=== PATIENT | female | born 1955 | race Caucasian/White ===

== ENCOUNTER 2016-09-29 12:40 | Inpatient (IN) ==
--- NOTE | 2016-09-29 13:26 | Emergency Department Note ---
Disposition Clinical Impression: Right patella fracture Qualifiers: Encounter type: subsequent encounter Fracture type: closed Fracture morphology : comminuted Fracture alignment: displaced Fracture healing: with routine healing Qualified Code(s): S82.041D - Displaced comminuted fracture of right patella, subsequent encounter for closed fracture with routine healing Humeral head fracture Qualifiers: Encounter type: subsequent encounter Laterality: right Fracture healing: with routine healing Qualified Code(s): S42.291D - Other displaced fracture of upper end of right humerus, subsequent encounter for fracture with routine healing Disposition: Admitted As Inpatient Condition: Good Time of Disposition: 14:43 Trauma HPI - General Chief Complaint: ED Extremity Injury, Upper Stated Complaint: right sided pain Time Seen by Provider: 09/29/16 13:08 Source: patient, EMS Mode of arrival: EMS Limitations: no limitations Nursing Notes Reviewed: Yes Vital Signs Reviewed: Yes - History of Present Illness HPI Narrative: 61-year-old female who apparently fell yesterday injuring her right shoulder and right knee. The patient was seen in an outside facility had x-rays was told that she had a shoulder dislocation that was reduced and she has a humeral neck fracture and a fracture of her right knee. Patient states she lives by herself cannot do anything for herself. She would like a social service consult also and a second opinion orthopedics. Pt Subjective Complaint: fall Onset (ago): day(s) (1) Loss of Consciousness: no Location - Extremities: Right: shoulder, knee Pain Severity: moderate - Related Data Home Medications Medication Instructions Recorded Confirmed Aspirin 81 mg PO DAILY 09/29/16 09/29/16 Diltiazem HCl [Diltiazem ER] 120 mg PO DAILY 09/29/16 09/29/16 Gabapentin [Neurontin] 400 mg PO TID 09/29/16 09/29/16 GlyBURIDE 5 mg PO BIDWM 09/29/16 09/29/16 Hydrochlorothiazide 25 mg PO DAILY 09/29/16 09/29/16 Losartan/Hydrochlorothiazide 1 tab PO DAILY 09/29/16 09/29/16 [Hyzaar 100-25 Tablet] Multivitamin [Multi-Day Vitamins] 1 tab PO DAILY 09/29/16 09/29/16 Naproxen [Naprosyn] 500 mg PO BID PRN 09/29/16 09/29/16 Pravastatin Sodium [Pravachol] 40 mg PO DAILY 09/29/16 09/29/16 Tolterodine LA (24 HR) [Detrol LA] 4 mg PO DAILY 09/29/16 09/29/16 Valacyclovir HCl [Valtrex] 1,000 mg PO Q12H PRN 09/29/16 09/29/16 Allergies Allergy/AdvReac Type Severity Reaction Status Date / Time iodine Allergy Hives Verified 09/29/16 12:51 All systems ED: reviewed and negative except as stated. Constitutional: Denies: fever, chills, weakness, weight change Eyes: Denies: eye pain, eye discharge, vision change ENT ED: Denies: ear pain, throat pain, dental pain, hearing loss, epistaxis, congestion, dysphagia Cardiovascular: Denies: chest pain, palpitations, dyspnea on exertion, edema, syncope Respiratory: Denies: cough, dyspnea, wheezes, hemoptysis, stridor Gastrointestinal: Denies: abdominal pain, nausea, vomiting, diarrhea, constipation, hematemesis, melena, hematochezia Genitourinary: Denies: dysuria, frequency, hematuria, discharge Musculoskeletal: Reports: arthralgia (Right knee and right shoulder pain status post fall diagnosed with fracture outside hospital). Denies: back pain, neck pain, myalgia Integumentary: Denies: rash, abrasion, lesions Neurological: Denies: headache, weakness, numbness, paresthesias, confusion, abnormal gait, vertigo Psychiatric: Denies: anxiety, depression, suicidal thoughts, homicidal thoughts , auditory hallucinations, visual hallucinations Endocrine: Denies: fatigue Hematological/Lymphatic: Denies: easy bleeding, easy bruising Allergic/Immunologic: Denies: facial swelling, urticaria Past Medical History - Past Medical History Medical history: Reports: diabetes, hyperlipidemia, hypertension - Social History Smoking Status: Never smoker Alcohol use: Reports: none Drug use: Reports: none Physical Exam - General General appearance: alert, in no apparent distress - Head Head exam: atraumatic, normocephalic, normal inspection - Eye Eye exam: Present: normal appearance, PERRL, EOMI - ENT ENT exam: normal exam, normal oropharynx, mucous membranes moist - Neck Neck exam: Present: normal inspection, full ROM, trachea midline - Chest Chest inspection: Present: normal inspection, symmetric chest wall rise - Respiratory Respiratory exam: Present: normal lung sounds bilaterally - Cardiovascular Cardiovascular exam: Present: regular rate, normal rhythm, normal heart sounds - Abdominal Exam Abdominal exam: Present: soft, Non-Tender. Absent: tenderness, distention, guarding, rebound, rigidity - Expanded Upper Extremity Exam Shoulder exam: Present: other (Right shoulder in a mobilizer a lot of pain in the shoulder region.) - Expanded Lower Extremity Exam Knee exam: Present: other (Right knee and immobilizer with significant pain.) Neurovascular/Tendon exam: Absent: motor deficit, sensory deficit, tendon deficit Gait: not tested/not observed - Back Exam Back exam: Present: normal inspection - Neurological Exam Neurological exam: Present: alert, oriented X3, other ([place] Coma Scale is 15) - Psychiatric Psychiatric exam: Present: normal affect, normal mood - Skin Skin exam: Present: warm, dry, intact, normal color Course - Consultations Consultation #1: I discussed the case with Dr. Callaway, he would like a CT of the shoulder and knee before the patient's admitted. Time: 14:41 Consultation #2: Discussed with Dr. Lindquist, admits Time: 14:42 Vital Signs Temperature 98.8 F 09/29/16 12:45 Pulse Rate 107 09/29/16 12:45 Respiratory Rate 16 09/29/16 12:45 Blood Pressure 133/82 09/29/16 12:45 O2 Sat by Pulse Oximetry 96 09/29/16 12:45 Temperature 98.8 F 09/29/16 12:45 Pulse Rate 96 09/29/16 16:15 Respiratory Rate 16 09/29/16 16:52 Blood Pressure 161/85 09/29/16 16:52 O2 Sat by Pulse Oximetry 93 09/29/16 16:15 Oxygen Delivery Oxygen Delivery Room Air Trauma - Radiology Data Radiology results reviewed: Yes I reviewed the patient's radiology results. Knee X-Ray 09/29/16 13:11 IMPRESSION: Comminuted and displaced fracture of the patella. D/ / 09/29/2016 14:05:03 Howard Rose MD / sadie Interpreting Provider: Howard Rose MD Shoulder X-Ray 09/29/16 13:11 IMPRESSION: Comminuted fracture of the peripheral superior-posterior humeral head. D/ / Max Murphy MD / Max Murphy MD Interpreting Provider: Max Murphy MD
[2016-09-29] MEDS ORDERED: *HR* HYDROmorphone (PF) 1 MG/ML SYRINGE IVP ONE (13:35)
[2016-09-29] MEDS ORDERED: Ondansetron 4 MG/2 ML VIAL IVP ONE ×2 (13:35→15:51)
[2016-09-29] MEDS ORDERED: Ondansetron 4 MG/2 ML VIAL ONE (15:52)
--- NOTE | 2016-09-29 16:47 | Internal Med History&Physical ---
<Vinh Mo - Last Filed: 09/29/16 16:45> Date of Encounter: 09/29/16 Time of Encounter: 16:46 Assessment and Plan (1) Fall Current visit: Yes Status: Acute 61-year-old female who was previously independent and walking without assistive devices suffered a mechanical fall after tripping over a wire at work and landing on her right knee and right shoulder. She lives at home independently. 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 Qualifiers: Qualified Code(s): W19.XXXA - Unspecified fall, initial encounter (2) Right patella fracture Current visit: Yes Status: Acute Right patellar fracture secondary to mechanical fall. Appreciated on x-ray of the right knee and CT of the right knee. Orthopedic surgery consultation placed by emergency department. Will likely need surgical intervention. Plan: - Nothing by mouth, prior to surgery - Low risk patient for a low risk procedure. - Physical therapy/occupational therapy consultation - Fall precautions - Needs CBC and BMP prior to surgery. Qualifiers: Encounter type: subsequent encounter Fracture type: closed Fracture morphology: comminuted Fracture alignment: displaced Fracture healing: with routine healing Qualified Code(s): S82.041D - Displaced comminuted fracture of right patella, subsequent encounter for closed fracture with routine healing (3) Humeral head fracture Current visit: Yes Status: Acute Right superior posterior humeral head fracture. Appreciated on shoulder x-ray and shoulder CT. Orthopedic consultation was placed by emergency department. Patient to be evaluated by orthopedist. Plan: - Continue splint. - Awaiting further recommendations per orthopedist. Qualifiers: Encounter type: subsequent encounter Laterality: right Fracture healing: with routine healing Qualified Code(s): S42.291D - Other displaced fracture of upper end of right humerus, subsequent encounter for fracture with routine healing (4) Hypertension Current visit: Yes Status: Acute Known history of hypertension current blood pressure stable. Plan: - We will hold blood pressure medications except for diltiazem prior to procedure. -Continue monitoring blood pressures. - Hydralazine 10 mg every 6 when necessary for blood pressures greater than 160 Qualifiers: Qualified Code(s): I10 - Essential (primary) hypertension (5) Hyperlipidemia Current visit: Yes Status: Acute Continue pravastatin. - Hold aspirin prior to procedure. Qualifiers: Qualified Code(s): E78.5 - Hyperlipidemia, unspecified (6) Diabetes Current visit: Yes Status: Acute Known history of type 2 diabetes. No labs drawn yet. Home medication thus far as his glyburide. Plan: - Low-dose sliding scale - ACHS glucose checks Qualifiers: Qualified Code(s): E11.9 - Type 2 diabetes mellitus without complications (7) DVT prophylaxis Current visit: Yes Status: Acute SQ heparin Q12hrs. Internal Medicine - H&P: HPI Chief complaint: fall Admitted From: Emergency Dept Plans for Post Hospital Care: [facility] History of present illness: Ms. Dacosta is a 61 year old female with known history of diabetes type 2, hypertension, hyperlipidemia presents to the emergency department status post traumatic fall at work. 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 She had immediate pain in the right knee and right shoulder with difficulty moving her right knee or right shoulder due to extreme pain. Relieving factors were immobility and bilateral when she arrived to emergency room. Exacerbating factors were movement. She denies taking anything prior to coming to the emergency department. She only noticed swelling in her right knee immediately after the fall. She denies any loss of sensation or numbness in her upper/lower extremities. She denies hitting her head, injuring her neck , loss of vision or change in vision, chest pain, palpitations, abdominal pains , nausea vomiting diarrhea constipation or shortness of breath. She is currently in stable condition rates her pain at 3 out of 10. Initial pain rating was 10 out of 10. She denies any current pain or change in symptoms. She denies any recent falls or frequent falls at home. She lives independently and cares for herself. She last fell several months ago when slipping on the ice. She denies the use of any canes or walkers or assist devices. Past Med Surg Social Fam HX - Past Medical History Medical history: diabetes, hyperlipidemia, hypertension - Past Surgical History Surgical History: cholecystectomy - Social History Smoking Status: Never smoker Alcohol use: none Drug use: none Internal Medicine - H&P: Meds Aspirin 81 mg PO DAILY 09/29/16 [History] Diltiazem HCl [Diltiazem ER] 120 mg PO DAILY 09/29/16 [History] Gabapentin [Neurontin] 400 mg PO TID 09/29/16 [History] GlyBURIDE 5 mg PO BIDWM 09/29/16 [History] Hydrochlorothiazide 25 mg PO DAILY 09/29/16 [History] Losartan/Hydrochlorothiazide [Hyzaar 100-25 Tablet] 1 tab PO DAILY 09/29/16 [ History] Multivitamin [Multi-Day Vitamins] 1 tab PO DAILY 09/29/16 [History] Naproxen [Naprosyn] 500 mg PO BID PRN 09/29/16 [History] Pravastatin Sodium [Pravachol] 40 mg PO DAILY 09/29/16 [History] Tolterodine LA (24 HR) [Detrol LA] 4 mg PO DAILY 09/29/16 [History] Valacyclovir HCl [Valtrex] 1,000 mg PO Q12H PRN 09/29/16 [History] Allergies iodine Allergy (Verified 09/29/16 12:51) Hives All Systems PM: A 10-system review of systems was performed and is negative for pertinent findings except as documented above in the HPI. - Constitutional Constitutional: falls, no anorexia, no chills, no fever(s), no weight gain, no weight loss - EENT Eyes: no blurry vision, no change in vision, no diplopia, no loss of vision Ears: no decreased hearing, no ear pain Nose, mouth and throat: no dental pain, no neck pain, no odynophagia, no sore throat - Cardiovascular Cardiovascular ROS IM: no chest pain, no claudication, no dyspnea, no edema, no orthopnea, no palpitations, no syncope - Respiratory Respiratory: no cough, no dyspnea, no wheezing - Gastrointestinal Gastrointestinal: nausea, no abdominal pain, no constipation, no diarrhea, no dysphagia, no hematemesis, no hematochezia, no vomiting - Genitourinary Genitourinary: no urinary hesitancy, no urinary incontinence, no urinary urgency - Musculoskeletal Musculoskeletal ROS IM: joint swelling, limited range of motion, tingling - Integumentary Integumentary IM: no rash, no jaundice - Neurological Neurological ROS: no confusion, no frequent falls, no headache(s), no loss of vision, no numbness, no paresthesias, no weakness - Psychiatric Psychiatric: no anxiety - Constitutional Vitals: Temp Pulse Resp BP Pulse Ox 98.8 F 96 16 156/81 93 09/29/16 12:45 09/29/16 16:15 09/29/16 16:15 09/29/16 16:15 09/29/16 16:15 General appearance: Present: cooperative, A&O X 3, pleasant, no acute distress - Head Head exam: Present: atraumatic, normocephalic - Eye Eye exam: Present: PERRL, conjuntiva pink, sclera anicteric Pupils: Present: PERRL - ENT ENT exam: Present: mucous membranes moist - Neck Neck exam general surgery: Present: supple, trachea midline. Absent: lymphadenopathy - Respiratory Respiratory exam: Present: CTAB. Absent: accessory muscle use, rales, rhonchi, wheezes - Cardiovascular Cardiovascular exam: Present: RRR, +S1, +S2. Absent: diastolic murmur, gallop, rubs, systolic murmur - GI/Abdominal GI/Abdominal exam: Present: normal bowel sounds, soft, no peritoneal signs. Absent: distended, tenderness - Extremities Exam Additional comments: Right upper extremity is in a sling with hand against abdomen, no erythema or edema of the distal right extremity tenderness to palpation of the right upper extremity around the humeral head. Left upper extremity is freely moving spontaneously. Right lower extremity is in a splint. Patient is able to wiggle fingers and toes and has 5 out of 5 dorsi flexion and plantar flexion. Sensation intact in all 4 extremities. Patient is neurovascularly intact in all 4 extremities. - Neurological Exam Neurological exam: Present: alert, CN II-XII intact, oriented X3. Absent: facial droop - Psychiatric Psychiatric exam: Present: normal affect, normal mood <Gucci Lindquist T - Last Filed: 09/29/16 18:53> Date of Encounter: 09/29/16 Internal Medicine - H&P: HPI History of present illness: Ms. Dacosta is a 61 year old female Past Med Surg Social Fam HX - Family History Father Hx Family Endocrine Disorder: Yes (diabetes) All Systems PM: A 10-system review of systems was performed and is negative for pertinent findings except as documented above in the HPI. - Constitutional Vitals: Temp Pulse Resp BP Pulse Ox 98.3 F 12 12 148/77 97 09/29/16 18:13 09/29/16 18:13 09/29/16 18:13 09/29/16 18:13 09/29/16 18:13 Internal Med - H&P Results - Labs CBC & Chem 7: 09/29/16 17:37 09/29/16 17:37 Labs: Short CBC 09/29/16 Range/Units 17:37 WBC 7.3 (4.3-11.1) K/mcL Hgb 9.9 L (11.5-15.4) g/dL Hct 31.1 L (35.3-44.9) % Plt Count 180 (140-400) K/mcL Neutrophils # 5.7 (1.6-8.9) K/mcL BMP 09/29/16 17:37 Sodium 135 L Potassium 4.4 Chloride 98 Carbon Dioxide 22 BUN 22 H Creatinine 1.31 H Glucose 239 H Calcium 10.1 Liver Function 09/29/16 Range/Units 17:37 Total Bilirubin 0.6 (0.2-1.2) mg/dL AST 24 (5-34) Units/L ALT 15 (0-55) Units/L Alkaline Phosphatase 65 (38-126) Units/L Albumin 3.7 (3.5-5.0) g/dL - Attending Attestation I have independently interviewed and examined this patient. I have reviewed the EMR extensively and discussed plan of care the resident/nurse practitioner with exemptions as stated below. patient with Obesity, HTN, HLD, DM, with mechanical fall and sustained a right patellar and humeral fracture Labs reveal normocytic anemia, suspected TA, with elevated BUN/Cr, A1C 8.1, Shoulder and Knee imaging noted. A/P: Right patellar and humeral head fracture, orthopedics has been consulted, TA, give IVF, check FeUrea due to patient being on diuretics, obtain UA, obtain retropeironeal USS, hold diuretics, continue other meds, low risk patient for low risk procedure. Type and screen, rest of details as in Resident's documentation....
[2016-09-29] MEDS ORDERED: Ondansetron 4 MG/2 ML VIAL IVP PRN (17:28)
[2016-09-29] MEDS ORDERED: Naloxone 0.4 MG/ML INJ IVP PRN (17:28)
[2016-09-29] MEDS ORDERED: Acetaminophen 325 MG TABLET PO PRN (17:28)
[2016-09-29] MEDS ORDERED: *HR* Dextrose 50 % in Water (Syg) 50 ML SYRINGE IVP PRN (17:32)
[2016-09-29] MEDS ORDERED: Dextrose Gel 15 GM PO PRN ×2 (17:32)
[2016-09-29] MEDS ORDERED: D5% in Water 1,000 ML IVC PRN (17:32)
[2016-09-29 17:47] LABS: Basophils % 0.3 %; Eosinophils % 0.3 %; Hematocrit 31.1 % (35.3-44.9); Hemoglobin 9.9 g/dL (11.5-15.4); Immature Granulocytes % 0.8 % (0-4); Lymphocytes # 1.1 K/mcL (0.6-4.6); Lymphocytes % 15.4 %; Mean Corpuscular HGB Conc 31.8 g/dL (31.6-35.5); Mean Corpuscular Hemoglobin 26.6 pg (28.0-33.3); Mean Corpuscular Volume 83.6 fL (83.0-100.0); Mean Platelet Volume 9.6 fL (9.4-12.4); Monocytes # 0.4 K/mcL (0.0-1.3); Monocytes % 5.4 %; Neutrophils # 5.7 K/mcL (1.6-8.9); Platelet Count 180 K/mcL (140-400); Red Blood Count 3.72 M/mcL (3.82-4.97); Segmented Neutrophils % 77.8 %
[2016-09-29 17:51] LABS: INR 1.1; Prothrombin Time 12.1 Seconds (9.4-12.1)
[2016-09-29 18:01] LABS: Potassium 4.4 mEq/L (3.5-4.5)
[2016-09-29 18:02] LABS: Albumin 3.7 g/dL (3.5-5.0); Albumin/Globulin Ratio 0.9 (1.1-2.2); Bilirubin,Total 0.6 mg/dL (0.2-1.2); Calcium 10.1 mg/dL (8.6-10.8); Globulin 4.2 g/dL (2.4-3.5); Total Protein 7.9 g/dL (6.0-8.3)
[2016-09-29 18:17] LABS: Hemoglobin A1C 8.1 %
[2016-09-29] MEDS: 0.9 % Sodium Chloride 1,000 ML IVC SCH (18:32)
--- NOTE | 2016-09-29 18:40 | Orthopedic Consult Note ---
Date of Encounter: 09/29/16 Time of Encounter: 18:35 Assessment and Plan (1) Right patella fracture Current Visit: Yes Status: Efra Lemon is a 61-year-old female with a right greater tuberosity fracture after shoulder dislocation and right comminuted patella fracture. She is currently admitted to the hospitalist. I did discuss treatment options and regarding the right shoulder the recommendation will be for nonoperative management with a sling and therapy. Regarding the right patella the recommendation would be for patellectomy versus ORIF of the patella depending on bone quality. I did discuss with my partner Dr. Decker who will manage the patella fracture operatively on Sunday. Nothing by mouth after midnight Sunday night, with simple sling to the right shoulder and knee immobilizer to the right knee. I will follow her clinically this weekend. Qualifiers: Encounter type: subsequent encounter Fracture type: closed Fracture morphology: comminuted Fracture alignment: displaced Fracture healing: with routine healing Qualified Code(s): S82.041D - Displaced comminuted fracture of right patella, subsequent encounter for closed fracture with routine healing History of Present Illness HPI: Ms. Dacosta is a 61 year old female who is admitted to the hospitalist after a fall. She said the fall occurred yesterday and she went to an outside emergency department where x-rays showed a right shoulder dislocation and right comminuted patella fracture. The shoulder was reduced on the right and she was sent home. Because she lives alone she is not able to take care of herself and she came to our ER where she was admitted and orthopedics was counseled to 2 assist in her extremity injuries. The patient indicates to me that she had a non-syncopal fall while at work. She has isolated pain to the right shoulder in the right knee. No numbness, tingling, or any associated signs or symptoms. Pain is reasonably well controlled at this point. She denies any headaches, neck pain, chest pain, abdominal pain, left upper extremity pain, and left lower extremity pain. At baseline she is an unassisted community ambulator. Past Med Surg Social Fam HX - Past Medical History Medical history: diabetes, hyperlipidemia, hypertension - Past Surgical History Surgical History: cholecystectomy - Social History Smoking Status: Never smoker Smokeless Tobacco Status: Yes Alcohol use: none Drug use: none - Family History Father Hx Family Endocrine Disorder: Yes (diabetes) Medications and Allergies Aspirin 81 mg PO DAILY 09/29/16 [History] Diltiazem HCl [Diltiazem ER] 120 mg PO DAILY 09/29/16 [History] Gabapentin [Neurontin] 400 mg PO TID 09/29/16 [History] GlyBURIDE 5 mg PO BIDWM 09/29/16 [History] Hydrochlorothiazide 25 mg PO DAILY 09/29/16 [History] Losartan/Hydrochlorothiazide [Hyzaar 100-25 Tablet] 1 tab PO DAILY 09/29/16 [ History] Multivitamin [Multi-Day Vitamins] 1 tab PO DAILY 09/29/16 [History] Naproxen [Naprosyn] 500 mg PO BID PRN 09/29/16 [History] Pravastatin Sodium [Pravachol] 40 mg PO DAILY 09/29/16 [History] Tolterodine LA (24 HR) [Detrol LA] 4 mg PO DAILY 09/29/16 [History] Valacyclovir HCl [Valtrex] 1,000 mg PO Q12H PRN 09/29/16 [History] Allergies iodine Allergy (Verified 09/29/16 12:51) Hives All Systems Reviewed: Constitutional and musculoskeletal systems were reviewed and are negative unless otherwise stated in history of present illness. Physical Exam - Constitutional Vitals: Temp Pulse Resp BP Pulse Ox 98.3 F 12 12 148/77 97 09/29/16 18:13 09/29/16 18:13 09/29/16 18:13 09/29/16 18:13 09/29/16 18:13 Constitutional -Vitals reviewed -The patient is well developed and well nourished. -Mood is pleasant. -The patient is well groomed. Psychiatric -The patient is fully alert and oriented x 3. Respiratory: -Respiratory effort normal Abdomen: -Soft abdomen -Non tender -Non distended: Left upper extremity: -No deformities. The overlying skin is intact. No obvious signs of acute trauma. -No tenderness to palpation throughout. -No significant pain with passive motion of the shoulder, elbow, wrist, and fingers within the limits of the bed. -Able to make an "OK" sign, cross the index and long fingers, and extend the thumb. -Sensation grossly intact to light touch throughout the median, radial, and ulnar distributions. -Radial pulse is present; Fingers have good capillary refill. Right upper extremity: -Extremity is in a sling and swath. -Tenderness at the shoulder with swelling. -No other tenderness noted. -Able to make an "OK" sign, cross the index and long fingers, and extend the thumb. -Sensation grossly intact to light touch throughout the median, radial, and ulnar distributions. -Radial pulse is present; Fingers have good capillary refill. Left lower extremity: -No deformities. The overlying skin is intact. No obvious signs of acute trauma. -No tenderness to palpation throughout. -No pain with passive motion of the hip, knee, ankle, and toes within the limits of the bed. -No pain with axial loading of the thigh. -Able to dorsiflex and plantarflex the ankle and toes. -Sensation is grossly intact to light touch throughout the sural, saphenous, superficial peroneal, and deep peroneal distributions. -Toes have good capillary refill. Right lower extremity: -Swelling to the anterior knee though the skin is intact. -Tenderness over the patella but none elsewhere throughout -Did not range the knee due to her known injury. -Able to dorsiflex and plantarflex the ankle and toes. -Sensation is grossly intact to light touch throughout the sural, saphenous, superficial peroneal, and deep peroneal distributions. -Toes have good capillary refill. Results - Labs Result Diagrams: 09/29/16 17:37 09/29/16 17:37 Labs: Abnormal lab results RBC 3.72 M/mcL (3.82-4.97) L 09/29/16 17:37 Hgb 9.9 g/dL (11.5-15.4) L 09/29/16 17:37 Hct 31.1 % (35.3-44.9) L 09/29/16 17:37 MCH 26.6 pg (28.0-33.3) L 09/29/16 17:37 Sodium 135 mEq/L (136-145) L 09/29/16 17:37 BUN 22 mg/dL (7-20) H 09/29/16 17:37 Creatinine 1.31 mg/dL (0.57-1.11) H 09/29/16 17:37 Est GFR ( Amer) 50 (> 60) L 09/29/16 17:37 Est GFR (Non-Af Amer) 41 (> 60) L 04/07/17 17:37 Glucose 239 mg/dL (70-99) H 09/29/16 17:37 Hemoglobin A1c 8.1 % (-5.6) H 09/29/16 17:37 Globulin 4.2 g/dL (2.4-3.5) H 09/29/16 17:37 Albumin/Globulin Ratio 0.9 (1.1-2.2) L 09/29/16 17:37 H & H 09/29/16 Range/Units 17:37 Hgb 9.9 L (11.5-15.4) g/dL Hct 31.1 L (35.3-44.9) % All other labs normal. - Diagnostic results Shoulder x-ray: image reviewed (Right minimally displaced greater tuberosity fractuer) Knee x-ray: image reviewed (Comminuted right patella fracture) Consult Discharge Plan - Plan Referrals: Che Yusuf, PROCESS SUPERVISOR [Primary Care Provider] -
[2016-09-29] MEDS: *HR* Morphine 2 MG/ML SYRINGE IVP PRN ×2 (19:22→23:50)
[2016-09-29 19:57] LABS: Uric Acid 6.2 mg/dL (2.6-6.0)
[2016-09-29] MEDS: Insulin LISPRO 300 UNITS/3 ML VIAL SQ SCH (21:05)
[2016-09-29] MEDS: *HR* Heparin 5,000 UNIT/ML VIAL SQ SCH (21:05)
[2016-09-30] MEDS: *HR* Morphine 2 MG/ML SYRINGE IVP PRN ×4 (03:58→19:24)
[2016-09-30] MEDS: 0.9 % Sodium Chloride 1,000 ML IVC SCH ×2 (04:02→14:47)
[2016-09-30 04:59] LABS: Basophils % 0.3 %; Eosinophils # 0.1 K/mcL (0.0-0.6); Eosinophils % 0.8 %; Hematocrit 27.4 % (35.3-44.9); Hemoglobin 8.9 g/dL (11.5-15.4); Immature Granulocytes % 0.5 % (0-4); Lymphocytes # 2.1 K/mcL (0.6-4.6); Lymphocytes % 33.5 %; Mean Corpuscular HGB Conc 32.5 g/dL (31.6-35.5); Mean Corpuscular Hemoglobin 27.1 pg (28.0-33.3); Mean Corpuscular Volume 83.5 fL (83.0-100.0); Mean Platelet Volume 10.5 fL (9.4-12.4); Monocytes # 0.5 K/mcL (0.0-1.3); Monocytes % 7.5 %; Neutrophils # 3.7 K/mcL (1.6-8.9); Platelet Count 181 K/mcL (140-400); Red Blood Count 3.28 M/mcL (3.82-4.97); Red Cell Distribution Width 14.3 % (11.5-14.5); Segmented Neutrophils % 57.4 %
[2016-09-30 05:13] LABS: BUN/Creatinine Ratio 18 (6-26); Blood Urea Nitrogen 18 mg/dL (7-20); Calcium 9.3 mg/dL (8.6-10.8); Carbon Dioxide 22 mEq/L (19-29); Chloride 101 mEq/L (98-109); Glucose 139 mg/dL (70-99); Osmolality,Calculated 284 (280-300); Potassium 3.8 mEq/L (3.5-4.5); Sodium 135 mEq/L (136-145); eGFR For African Americans > 60 (> 60); eGFR For Non-African Americans 57 (> 60)
[2016-09-30 05:14] LABS: % Iron Saturation 7 % (15-50); Iron 29 mcg/dL (50-170); Transferrin 284 mg/dL (180-382)
[2016-09-30] MEDS: *HR* Heparin 5,000 UNIT/ML VIAL SQ SCH ×3 (05:22→21:44)
[2016-09-30] MEDS: Insulin LISPRO 300 UNITS/3 ML VIAL SQ SCH ×4 (07:45→20:08)
[2016-09-30] MEDS: Pantoprazole 40 MG VIAL IVP SCH (07:45)
[2016-09-30] MEDS ORDERED: 0.9 % Sodium Chloride 1,000 ML IVC SCH (16:47)
--- NOTE | 2016-09-30 18:39 | Internal Med Progress Note ---
Date of Encounter: 09/30/16 Time of Encounter: 16:00 - Assessment and plan (1) Right patella fracture Current Visit: Yes Status: Acute Assessment and plan: Pain control with IV morphine for severe pain, and Percocet for moderate pain. Continue with acetaminophen for mild pain. Follow up with orthopedic service. Patient is nonweightbearing. Continue with Quigley catheter to prevent skin breakdown and worsening pain which would require additional IV opiates. She is at high risk for morbidity and mortality and complications due to treatment for pain with IV opiates. Qualifiers: Encounter type: subsequent encounter Fracture type: closed Fracture morphology: comminuted Fracture alignment: displaced Fracture healing: with routine healing Qualified Code(s): S82.041D - Displaced comminuted fracture of right patella, subsequent encounter for closed fracture with routine healing (2) Humeral head fracture Current Visit: Yes Status: Acute Assessment and plan: Surgical repair planned for Sunday. Continue with pain control. Right arm immobilized in a sling, painless mild to moderate at rest. Frequent neurovascular checks. Qualifiers: Encounter type: subsequent encounter Laterality: right Fracture healing: with routine healing Qualified Code(s): S42.291D - Other displaced fracture of upper end of right humerus, subsequent encounter for fracture with routine healing (3) Fall Current Visit: Yes Status: Acute Qualifiers: Qualified Code(s): W19.XXXA - Unspecified fall, initial encounter (4) Hypertension Current Visit: Yes Status: Acute Assessment and plan: Restart diltiazem losartan A HCTZ per her home doses. Monitor blood pressure closely. Pain control. Qualifiers: Hypertension type: essential hypertension Qualified Code(s): I10 - Essential (primary) hypertension (5) Hyperlipidemia Current Visit: Yes Status: Acute Assessment and plan: I will restart her pravastatin. Qualifiers: Hyperlipidemia type: unspecified Qualified Code(s): E78.5 - Hyperlipidemia , unspecified (6) Diabetes Current Visit: Yes Status: Acute Assessment and plan: She is not on glyburide at home. I will stop this and start insulin sliding scale. Diabetic diet. 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 - Subjective Interval history: Patient reports severe right knee pain, better with rest and IV pain medication. She had fallen while at work and injured her right knee and right arm. She was diagnosed with a right patellar fracture and right humeral fracture and was transferred to our facility for further treatment. - Constitutional Vitals: Temp Pulse Resp BP Pulse Ox 98.4 F 99 18 150/66 97 09/30/16 15:49 09/30/16 15:49 09/30/16 15:49 09/30/16 15:49 09/30/16 15:49 General appearance: Present: cooperative, A&O X 3, pleasant, no acute distress - Eye Eye exam: Present: PERRL, conjuntiva pink, sclera anicteric Pupils: Present: PERRL - Respiratory Respiratory exam: Present: CTAB. Absent: accessory muscle use, rales, rhonchi, wheezes - Cardiovascular Cardiovascular exam: Present: RRR, +S1, +S2. Absent: diastolic murmur, gallop, rubs, systolic murmur - GI/Abdominal GI/Abdominal exam: Present: normal bowel sounds, soft, no peritoneal signs. Absent: distended, tenderness - Extremities Exam Additional comments: Right knee swollen and tender to palpation. Right lower extremity is immobilized in a brace. - Neurological Exam Neurological exam: Present: CN II-XII intact, oriented X3, no focal deficits. Absent: pronater drift, facial droop, speech deficit - Skin Skin exam: Present: dry, intact Internal Medicine: Result - Labs CBC & Chem 7: 09/30/16 04:05 09/30/16 04:05 - ABG Interpretation ABG results: PT/INR, D-dimer PT 12.1 Seconds (9.4-12.1) 09/29/16 17:37 - Impressions Impressions Retroperitoneum Ultrasound 09/30/16 18:37 IMPRESSION: 1. No hydronephrosis. 2. Hepatic steatosis. 3. Mild bladder wall thickening, which is nonspecific. D/ / 09/30/2016 10:11:08 Nidia Perkins MD / brenda Interpreting Provider: Nidia Perkins MD Consult Discharge Plan - Plan Referrals: Che Yusuf SDE [Primary Care Provider] -
[2016-09-30] MEDS: *HR* OxyCODONE/APAP 5/325 TABLET PO PRN (22:47)
[2016-10-01 05:45] LABS: Basophils % 0.3 %; Eosinophils # 0.1 K/mcL (0.0-0.6); Eosinophils % 1.3 %; Hematocrit 27.9 % (35.3-44.9); Hemoglobin 8.9 g/dL (11.5-15.4); Immature Granulocytes % 0.8 % (0-4); Lymphocytes # 1.8 K/mcL (0.6-4.6); Lymphocytes % 28.2 %; Mean Corpuscular HGB Conc 31.9 g/dL (31.6-35.5); Mean Corpuscular Volume 84.5 fL (83.0-100.0); Mean Platelet Volume 10.1 fL (9.4-12.4); Monocytes # 0.5 K/mcL (0.0-1.3); Platelet Count 184 K/mcL (140-400); Red Cell Distribution Width 14.1 % (11.5-14.5); Segmented Neutrophils % 62.4 %
[2016-10-01 06:12] LABS: BUN/Creatinine Ratio 12 (6-26); Blood Urea Nitrogen 13 mg/dL (7-20); Calcium 9.3 mg/dL (8.6-10.8); Carbon Dioxide 22 mEq/L (19-29); Chloride 102 mEq/L (98-109); Glucose 181 mg/dL (70-99); Osmolality,Calculated 287 (280-300); Sodium 136 mEq/L (136-145); eGFR For African Americans > 60 (> 60); eGFR For Non-African Americans 50 (> 60)
[2016-10-01] MEDS: *HR* Heparin 5,000 UNIT/ML VIAL SQ SCH ×3 (06:21→22:45)
[2016-10-01] MEDS: Insulin LISPRO 300 UNITS/3 ML VIAL SQ SCH ×4 (07:43→20:46)
[2016-10-01] MEDS: Pantoprazole 40 MG VIAL IVP SCH (07:43)
--- NOTE | 2016-10-01 08:29 | Orthopedics Progress Note ---
Date of Encounter: 10/01/16 Time of Encounter: 08:26 - Assessment and Plan (1) Right patella fracture Current Visit: Yes Status: Acute Qualifiers: Encounter type: subsequent encounter Fracture type: closed Fracture morphology: comminuted Fracture alignment: displaced Fracture healing: with routine healing Qualified Code(s): S82.041D - Displaced comminuted fracture of right patella, subsequent encounter for closed fracture with routine healing Subjective Interval history: S: Pain controlled to the right shoulder and right knee O: Afeb/VSS RUE in sling NV intact to the right hand. RLE in immobilizer NV intact to the right foot. A: Right greater tuberosity fracture Right comminuted patellar fracture P: Anticipate non op mgt for the right shoulder Plan for surgical fixation versus patellactomy tomorrow, right knee. NPO after midnight. Objective Vital signs: Vital Signs Temp Pulse Resp BP Pulse Ox 10/01/16 06:43 98.2 F 102 16 144/86 95 09/30/16 23:22 98 F 100 14 146/82 95 09/30/16 19:00 98 F 108 15 124/72 95 Intake and Output 09/30/16 10/01/16 10/01/16 23:59 07:59 15:59 Intake Total 200 / 200 220 / 220 Output Total 1450 / 1450 375 / 375 Balance -1250 / -1250 -155 / -155 Intake: Oral 200 / 200 220 / 220 Output: Catheter 1450 / 1450 375 / 375 Other: Blood Glucose* 199 210 - Labs CBC & BMP: 10/01/16 05:14 10/01/16 05:14 Labs: Abnormal lab results RBC 3.30 M/mcL (3.82-4.97) L 10/01/16 05:14 Hgb 8.9 g/dL (11.5-15.4) L 10/01/16 05:14 Hct 27.9 % (35.3-44.9) L 10/01/16 05:14 MCH 27.0 pg (28.0-33.3) L 10/01/16 05:14 Est GFR (Non-Af Amer) 50 (> 60) L 10/01/16 05:14 Glucose 181 mg/dL (70-99) H 10/01/16 05:14 POC Glucose 210 (58-89) H 10/01/16 07:28 Hemoglobin A1c 8.1 % (-5.6) H 09/29/16 17:37 Uric Acid 6.2 mg/dL (2.6-6.0) H 09/29/16 17:37 Iron 29 mcg/dL (50-170) L 09/30/16 04:05 % Saturation 7 % (15-50) L 09/30/16 04:05 Globulin 4.2 g/dL (2.4-3.5) H 09/29/16 17:37 Albumin/Globulin Ratio 0.9 (1.1-2.2) L 09/29/16 17:37 Consult Discharge Plan - Plan Referrals: Che Yusuf CNP [Primary Care Provider] -
[2016-10-01] MEDS: *HR* OxyCODONE/APAP 5/325 TABLET PO PRN ×3 (10:43→23:00)
--- NOTE | 2016-10-01 17:07 | Internal Med Progress Note ---
Date of Encounter: 10/01/16 Time of Encounter: 13:00 - Assessment and plan (1) Right patella fracture Current Visit: Yes Status: Acute Assessment and plan: Pain control with IV morphine for severe pain, and Percocet for moderate pain. Continue with acetaminophen for mild pain. Follow up with orthopedic service. Patient is nonweightbearing. Continue with Quigley catheter to prevent skin breakdown and worsening pain which would require additional IV opiates. Surgical repair planned for tomorrow. Patient is medically cleared for surgery. Does not require any further workup or testing other than routine CBC and BMP. She is at high risk for morbidity and mortality and complications due to treatment for pain with IV opiates. Qualifiers: Encounter type: subsequent encounter Fracture type: closed Fracture morphology: comminuted Fracture alignment: displaced Fracture healing: with routine healing Qualified Code(s): S82.041D - Displaced comminuted fracture of right patella, subsequent encounter for closed fracture with routine healing (2) Humeral head fracture Current Visit: Yes Status: Acute Assessment and plan: Surgical repair planned for Sunday. Continue with pain control. Right arm immobilized in a sling, painless mild to moderate at rest. Frequent neurovascular checks. Qualifiers: Encounter type: subsequent encounter Laterality: right Fracture healing: with routine healing Qualified Code(s): S42.291D - Other displaced fracture of upper end of right humerus, subsequent encounter for fracture with routine healing (3) Fall Current Visit: Yes Status: Acute Assessment and plan: Currently bedrest. Fall precautions. PT OT evaluation postop. Qualifiers: Qualified Code(s): W19.XXXA - Unspecified fall, initial encounter (4) Hypertension Current Visit: Yes Status: Acute Assessment and plan: Restart diltiazem losartan A HCTZ per her home doses. Monitor blood pressure closely. Pain control. Qualifiers: Hypertension type: essential hypertension Qualified Code(s): I10 - Essential (primary) hypertension (5) Hyperlipidemia Current Visit: Yes Status: Acute Assessment and plan: I will restart her pravastatin. Qualifiers: Hyperlipidemia type: unspecified Qualified Code(s): E78.5 - Hyperlipidemia , unspecified (6) Diabetes Current Visit: Yes Status: Acute Assessment and plan: She is not on glyburide at home. I will stop this and start insulin sliding scale. Diabetic diet. Qualifiers: Diabetes mellitus type: type 2 Diabetes mellitus complication status: without complication Diabetes mellitus long-term insulin use: without long-term use Qualified Code(s): E11.9 - Type 2 diabetes mellitus without complications (7) DVT prophylaxis Current Visit: Yes Status: Acute Assessment and plan: Subcutaneous heparin every 8 hours. (8) Chronic anemia Current Visit: Yes Status: Acute Assessment and plan: This is worsening likely due to IV fluids. We will check iron studies. Check hemoglobin and hematocrit in the morning. Transfuse if hemoglobin below 8. - Subjective Interval history: Patient reports mild to moderate right knee pain, better with rest and IV pain medication. She fell while at work and injured her right knee and right arm. She was diagnosed with a right patellar fracture and right humeral fracture and was transferred to our facility for further treatment. - Constitutional Vitals: Temp Pulse Resp BP Pulse Ox 98.5 F 97 16 146/83 95 10/01/16 14:38 10/01/16 14:38 10/01/16 14:38 10/01/16 14:38 10/01/16 14:38 General appearance: Present: cooperative, A&O X 3, pleasant, no acute distress - Eye Eye exam: Present: PERRL, conjuntiva pink, sclera anicteric Pupils: Present: PERRL - Respiratory Respiratory exam: Present: CTAB. Absent: accessory muscle use, rales, rhonchi, wheezes - Cardiovascular Cardiovascular exam: Present: RRR, +S1, +S2. Absent: diastolic murmur, gallop, rubs, systolic murmur - GI/Abdominal GI/Abdominal exam: Present: normal bowel sounds, soft, no peritoneal signs. Absent: distended, tenderness - Extremities Exam Extremities exam: Present: warm, radial pulses palpable and symetrical. Absent : calf tenderness (Right lower extremity is immobilized and a knee brace), cyanotic, pedal edema Internal Medicine: Result - Labs CBC & Chem 7: 10/01/16 05:14 10/01/16 05:14 Labs: Short CBC 10/01/16 Range/Units 05:14 WBC 6.4 (4.3-11.1) K/mcL Hgb 8.9 L (11.5-15.4) g/dL Hct 27.9 L (35.3-44.9) % Plt Count 184 (140-400) K/mcL Neutrophils # 4.0 (1.6-8.9) K/mcL BMP 10/01/16 05:14 Sodium 136 Potassium 4.0 Chloride 102 Carbon Dioxide 22 BUN 13 Creatinine 1.10 Glucose 181 H Calcium 9.3 - ABG Interpretation ABG results: PT/INR, D-dimer PT 12.1 Seconds (9.4-12.1) 09/29/16 17:37 Consult Discharge Plan - Plan Referrals: Che Yusuf CNP [Primary Care Provider] -
[2016-10-02 03:17] LABS: Basophils % 0.4 %; Eosinophils # 0.1 K/mcL (0.0-0.6); Eosinophils % 1.3 %; Hematocrit 28.2 % (35.3-44.9); Hemoglobin 8.9 g/dL (11.5-15.4); Immature Granulocytes % 0.4 % (0-4); Lymphocytes # 2.1 K/mcL (0.6-4.6); Lymphocytes % 30.4 %; Mean Corpuscular HGB Conc 31.6 g/dL (31.6-35.5); Mean Corpuscular Hemoglobin 26.5 pg (28.0-33.3); Mean Corpuscular Volume 83.9 fL (83.0-100.0); Mean Platelet Volume 9.8 fL (9.4-12.4); Monocytes # 0.5 K/mcL (0.0-1.3); Monocytes % 6.9 %; Neutrophils # 4.2 K/mcL (1.6-8.9); Platelet Count 194 K/mcL (140-400); Red Blood Count 3.36 M/mcL (3.82-4.97); Red Cell Distribution Width 14.2 % (11.5-14.5); Segmented Neutrophils % 60.6 %
[2016-10-02 03:34] LABS: Calcium 9.3 mg/dL (8.6-10.8); Potassium 3.9 mEq/L (3.5-4.5)
[2016-10-02 04:09] LABS: Folate 16.5 ng/mL (7.0-31.4); Vitamin B12 < 109 pg/mL (213-816)
[2016-10-02] MEDS: *HR* Heparin 5,000 UNIT/ML VIAL SQ SCH ×3 (06:06→22:24)
[2016-10-02] MEDS: *HR* Morphine 2 MG/ML SYRINGE IVP PRN (06:12)
[2016-10-02] MEDS: Insulin LISPRO 300 UNITS/3 ML VIAL SQ SCH ×4 (07:44→22:25)
[2016-10-02] MEDS: Pantoprazole 40 MG VIAL IVP SCH (07:44)
[2016-10-02 09:16] LABS: Bilirubin,Urine Negative (Negative); Blood,Urine Small (Negative); Clarity,Urine Turbid (Clear); Color,Urine Yellow (Yellow); Glucose,Urine (UA) 250 mg/dL (Normal); Ketones,Urine Trace mg/dL (Negative); Leukocyte Esterase,Urine Moderate (Negative); Nitrite,Urine Positive (Negative); Protein,Urine 30 mg/dL (Neg-Trace); Specific Gravity,Urine 1.022 (1.010-1.025); Urobilinogen,Urine Normal (Normal)
[2016-10-02 09:49] LABS: Creatinine,Urine 107 mg/dL
[2016-10-02] MEDS ORDERED: D5% in 0.9% NACL 1,000 ML IVC SCH ×2 (10:00→21:37)
[2016-10-02] MEDS: *HR* OxyCODONE/APAP 5/325 TABLET PO PRN (11:49)
--- NOTE | 2016-10-02 14:22 | Orthopedics Progress Note ---
Date of Encounter: 10/02/16 Time of Encounter: 14:19 - Assessment and Plan (1) Right patella fracture Current Visit: Yes Status: Acute Anticipate non op mgt for the right shoulder - Continue in sling, no shoulder motion Plan for ORIF right patella with . WBAT Consent discussed and explained. All questions answered and addressed. Patient signed Surgery today Qualifiers: Encounter type: subsequent encounter Fracture type: closed Fracture morphology: comminuted Fracture alignment: displaced Fracture healing: with routine healing Qualified Code(s): S82.041D - Displaced comminuted fracture of right patella, subsequent encounter for closed fracture with routine healing (2) Humeral head fracture Current Visit: Yes Status: Acute Qualifiers: Encounter type: subsequent encounter Laterality: right Fracture healing: with routine healing Qualified Code(s): S42.291D - Other displaced fracture of upper end of right humerus, subsequent encounter for fracture with routine healing (3) Fall Current Visit: Yes Status: Acute Qualifiers: Qualified Code(s): W19.XXXA - Unspecified fall, initial encounter Subjective Principal diagnosis: Right Patellar Fracture, Right humerus fracture Interval history: Patient doing well; pain controlled laying in bed. NPO. A&O x 3 - Afebrile, vitals stable. S: Pain controlled to the right shoulder and right knee O: RUE in sling NV intact to the right hand. RLE in immobilizer NV intact to the right foot. A: Right greater tuberosity fracture Right comminuted patellar fracture P: Anticipate non op mgt for the right shoulder - Continue in sling, no shoulder motion Plan for ORIF right patella with . WBAT Consent discussed and explained. All questions answered and addressed. Patient signed Surgery today Objective Vital signs: Vital Signs Temp Pulse Resp BP Pulse Ox 10/02/16 11:15 98.3 F 106 16 155/82 96 10/02/16 06:28 98.9 F 104 18 163/85 95 10/02/16 04:50 98.7 F 94 15 152/61 93 10/01/16 23:52 98.4 F 93 15 158/67 94 10/01/16 20:30 98.5 F 99 14 149/79 92 10/01/16 14:38 98.5 F 97 16 146/83 95 Intake and Output 10/01/16 10/02/16 10/02/16 23:59 07:59 15:59 Intake Total 325 / 325 100 / 100 Output Total 1500 / 1500 350 / 350 Balance -1175 / -1175 -350 / -350 100 / 100 Intake: Oral 325 / 325 100 / 100 Output: Catheter 1500 / 1500 350 / 350 Other: Meal Lunch Percent of Meal Consumed 10% Blood Glucose* 179 205 175 - Labs CBC & BMP: 10/02/16 02:46 10/02/16 02:46 Labs: Abnormal lab results RBC 3.36 M/mcL (3.82-4.97) L 10/02/16 02:46 Hgb 8.9 g/dL (11.5-15.4) L 10/02/16 02:46 Hct 28.2 % (35.3-44.9) L 10/02/16 02:46 MCH 26.5 pg (28.0-33.3) L 10/02/16 02:46 Sodium 135 mEq/L (136-145) L 10/02/16 02:46 Creatinine 1.13 mg/dL (0.57-1.11) H 10/02/16 02:46 Est GFR ( Amer) 59 (> 60) L 10/02/16 02:46 Est GFR (Non-Af Amer) 49 (> 60) L 10/02/16 02:46 Glucose 185 mg/dL (70-99) H 10/02/16 02:46 POC Glucose 179 (58-89) H 10/01/16 20:19 Hemoglobin A1c 8.1 % (-5.6) H 09/29/16 17:37 Uric Acid 6.2 mg/dL (2.6-6.0) H 09/29/16 17:37 Iron 29 mcg/dL (50-170) L 10/02/16 02:46 % Saturation 8 % (15-50) L 10/02/16 02:46 Globulin 4.2 g/dL (2.4-3.5) H 09/29/16 17:37 Albumin/Globulin Ratio 0.9 (1.1-2.2) L 09/29/16 17:37 Vitamin B12 < 109 pg/mL (213-816) L 10/02/16 02:46 Urine Clarity Turbid (Clear) A 10/02/16 09:00 Urine Protein 30 mg/dL (Neg-Trace) H 10/02/16 09:00 Urine Glucose (UA) 250 mg/dL (Normal) H 10/02/16 09:00 Urine Ketones Trace mg/dL (Negative) H 10/02/16 09:00 Urine Blood Small (Negative) H 10/02/16 09:00 Urine Nitrite Positive (Negative) A 10/02/16 09:00 Ur Leukocyte Esterase Moderate (Negative) H 10/02/16 09:00 Consult Discharge Plan - Plan Referrals: Che Yusuf CNP [Primary Care Provider] -
--- NOTE | 2016-10-02 17:31 | Anesthesia Evaluation PreOp ---
Date of Encounter: 10/02/16 Time of Encounter: 17:29 - Past History Planned Operation: ORIF Right Patella Cardiac History: HTN, Hyperlipidemia Pulmonary History: Denies Any Significant HX CAP MAKER History: Denies Any Significant HX Other Medical History: Diabetes Type II Anesthesia History: No Prior Anesthetic Complications, Past Anesthesia Alcohol Use: none Drug use: none Medications and Allergies Aspirin 81 mg PO DAILY 09/29/16 [History] Diltiazem HCl [Diltiazem ER] 120 mg PO DAILY 09/29/16 [History] Gabapentin [Neurontin] 400 mg PO TID 09/29/16 [History] GlyBURIDE 5 mg PO BIDWM 09/29/16 [History] Hydrochlorothiazide 25 mg PO DAILY 09/29/16 [History] Losartan/Hydrochlorothiazide [Hyzaar 100-25 Tablet] 1 tab PO DAILY 09/29/16 [ History] Multivitamin [Multi-Day Vitamins] 1 tab PO DAILY 09/29/16 [History] Naproxen [Naprosyn] 500 mg PO BID PRN 09/29/16 [History] Pravastatin Sodium [Pravachol] 40 mg PO DAILY 09/29/16 [History] Tolterodine LA (24 HR) [Detrol LA] 4 mg PO DAILY 09/29/16 [History] Valacyclovir HCl [Valtrex] 1,000 mg PO Q12H PRN 09/29/16 [History] Allergies iodine Allergy (Verified 09/29/16 12:51) Hives - Meds/Allergy Pre-op Review Medications Reviewed: Yes Allergies Reviewed: Yes Beta Blockers on Current Med List: No Anesthesia Results - Labs 10/02/16 02:46 10/02/16 02:46 Laboratory Tests 09/29/16 17:37 PT 12.1 INR 1.1 APTT 27.0 - Imaging EKG: report reviewed (10/02/2016 ST, low QRS voltage in precordial leads, inferior infarct) Anesthesia Exam Vital Signs/O2 Sat/Glucose, Most Recent Temp Pulse Resp BP Pulse Ox 98.9 F 104 18 147/79 98 10/02/16 14:28 10/02/16 14:28 10/02/16 14:28 10/02/16 14:28 10/02/16 14:28 Blood Glucose* 165 Height: 5'7''/1.7 m Weight: 218 lbs/98.883 NPO (# of Hours): 8 Pain Scale: 0 Pain Scale Used: Numeric (1 - 10) - HEENT Pupil (Motor): EOMI Mallampati: III Teeth: Normal Denture Type: Upper: Complete Oral Opening: Greater than 3 - CAP MAKER LOC: Oriented CAP MAKER Motor: Normal LUE, Normal RLE, Normal LLE, Normal Face, Deficit RUE (right humeral head fracture) CAP MAKER Sensory: Normal: RUE, LUE, Face, Deficit: RLE (neuropathy), LLE (neuropathy) - Cardiac Rhythm: Regular Murmur: None - Pulmonary Breath Sounds: bilateral Clear Respiratory Effort: Symmetrical Anesthesia Assess/Plan ASA Score: 3 Modified [place] Scale for Level of Consciousness: Cooperative, oriented, and tranquil Anesthetic Plan: General Monitoring Plan: Standard Monitors Recovery Plan: PACU
[2016-10-02] MEDS ORDERED: *HR* FentaNYL (PF) 100 MCG/2 ML VIAL ONE (19:10)
[2016-10-02] MEDS ORDERED: Lidocaine -MPF 2% 2 ML VIAL ONE (19:11)
[2016-10-02] MEDS ORDERED: *HR* Propofol 200 MG/20 ML VIAL IVP ONE (19:11)
[2016-10-02] MEDS ORDERED: Ondansetron 4 MG/2 ML VIAL ONE (19:11)
[2016-10-02] MEDS ORDERED: Dexamethasone 4 MG/ML VIAL ONE (19:11)
[2016-10-02] MEDS ORDERED: Ketorolac 30 MG/ML VIAL ONE (19:24)
[2016-10-02] MEDS ORDERED: *HR* HYDROmorphone 2 MG/ML SYRINGE ONE (19:31)
[2016-10-02] MEDS ORDERED: *HR* HYDROmorphone (PF) 1 MG/ML SYRINGE IVP PRN (19:33)
[2016-10-02] MEDS ORDERED: *HR* Promethazine 25 MG/ML VIAL IVP PRN (19:33)
--- NOTE | 2016-10-02 19:47 | Orthopedic Operative Note ---
Date of procedure: 10/02/16 Pre-op diagnosis: Displaced comminuted right patella fracture Post-op diagnosis: same Procedure: Procedure: Patella ORIF right Estimated blood loss: 100 cc Hardware: None Procedural Notes: Comminuted and displaced Operative procedure: The patient was brought to the operating room and placed on the operating room table. After general anesthesia was the operative extremity was prepped and draped in sterile surgical fashion. The patient received IV antibiotics prior to skin incision. A standard midline incision was made centered over the patella. The incision was made through the skin and subcutaneous tissue. The fracture site was identified, fracture hematoma was evacuated. Patient had severe comminution of the patella. A lateral arthrotomy was performed tibial to palpate the joint surface. The 2 medial fragments were reduced first and secured with a #2 FiberWire suture through drill holes in a cerclage stitch fashion. Also through this drill hole was passed a #5 FiberWire suture. The 2 lateral fragments were reduced and secured with a #2 FiberWire suture and a cerclage stitch fashion and the #5 FiberWire suture was passed to complete the [id number] secure suture construct. Palpation of the joint surface felt the joint to be acceptably reduced. Wound was irrigated the retinaculum was repaired with interrupted [id number] #2 FiberWire suture. The subcutaneous tissues irrigated and closed deep with #1 PDS suture superficially with 0 PDS suture and skin was closed with skin shabana Patient was placed in a sterile dressing postoperative brace. The patient was then extubated and transferred to the recovery room in stable condition. Anesthesia: GETJulian Surgeon: Ham Decker System Development Engineer: Samia Meyers Condition: stable Disposition: PACU
--- NOTE | 2016-10-02 20:10 | Internal Med Progress Note ---
Date of Encounter: 10/02/16 Time of Encounter: 09:00 - Assessment and plan (1) Right patella fracture Current Visit: Yes Status: Acute Assessment and plan: Pain control with IV morphine for severe pain, and Percocet for moderate pain. Continue with acetaminophen for mild pain. Follow up with orthopedic service. Patient is nonweightbearing. Continue with Quigley catheter to prevent skin breakdown and worsening pain which would require additional IV opiates. Surgical repair planned for tomorrow. Patient is medically cleared for surgery. Does not require any further workup or testing other than routine CBC and BMP. She is at high risk for morbidity and mortality and complications due to treatment for pain with IV opiates and need for major orthopedic surgery today. Qualifiers: Encounter type: subsequent encounter Fracture type: closed Fracture morphology: comminuted Fracture alignment: displaced Fracture healing: with routine healing Qualified Code(s): S82.041D - Displaced comminuted fracture of right patella, subsequent encounter for closed fracture with routine healing (2) Humeral head fracture Current Visit: Yes Status: Acute Assessment and plan: Surgical repair planned for Sunday. Continue with pain control. Right arm immobilized in a sling, painless mild to moderate at rest. Frequent neurovascular checks. Qualifiers: Encounter type: subsequent encounter Laterality: right Fracture healing: with routine healing Qualified Code(s): S42.291D - Other displaced fracture of upper end of right humerus, subsequent encounter for fracture with routine healing (3) Fall Current Visit: Yes Status: Acute Assessment and plan: Currently bedrest. Fall precautions. PT OT evaluation postop. Qualifiers: Qualified Code(s): W19.XXXA - Unspecified fall, initial encounter (4) Hypertension Current Visit: Yes Status: Acute Assessment and plan: Restart diltiazem losartan A HCTZ per her home doses. Monitor blood pressure closely. Pain control. Qualifiers: Hypertension type: essential hypertension Qualified Code(s): I10 - Essential (primary) hypertension (5) Hyperlipidemia Current Visit: Yes Status: Acute Assessment and plan: I will restart her pravastatin. Qualifiers: Hyperlipidemia type: unspecified Qualified Code(s): E78.5 - Hyperlipidemia , unspecified (6) Diabetes Current Visit: Yes Status: Acute Assessment and plan: Injections on sliding scale to every 6 hours. Start normal saline with IV dopamine dextrose to avoid starvation ketosis due to prolonged nothing by mouth status. She is on glyburide at home. I will stop this and start insulin sliding scale. Diabetic diet. Qualifiers: Diabetes mellitus type: type 2 Diabetes mellitus complication status: without complication Diabetes mellitus lobsterman insulin use: without skilled nursing use Qualified Code(s): E11.9 - Type 2 diabetes mellitus without complications (7) DVT prophylaxis Current Visit: Yes Status: Acute Assessment and plan: Subcutaneous heparin every 8 hours. (8) Chronic anemia Current Visit: Yes Status: Acute Assessment and plan: This is worsening likely due to IV fluids. Anemia studies reveal iron deficiency. Start oral iron prior to discharge. Transfuse if hemoglobin below 7. - Subjective Interval history: Patient reports mild right knee pain, better with rest and oral pain medication. She fell while at work and injured her right knee and right arm. She was diagnosed with a right patellar fracture and right humeral fracture and was transferred to our facility for further treatment. - Constitutional Vitals: Temp Pulse Resp BP Pulse Ox 98.9 F 104 18 147/79 98 10/02/16 14:28 10/02/16 14:28 10/02/16 14:28 10/02/16 14:28 10/02/16 14:28 General appearance: Present: cooperative, A&O X 3, pleasant, no acute distress - Respiratory Respiratory exam: Present: CTAB. Absent: accessory muscle use, rales, rhonchi, wheezes - Cardiovascular Cardiovascular exam: Present: RRR, +S1, +S2. Absent: diastolic murmur, gallop, rubs, systolic murmur - GI/Abdominal GI/Abdominal exam: Present: normal bowel sounds, soft, no peritoneal signs. Absent: distended, tenderness Internal Medicine: Result - Labs CBC & Chem 7: 10/02/16 02:46 10/02/16 02:46 Labs: Short CBC 10/02/16 Range/Units 02:46 WBC 7.0 (4.3-11.1) K/mcL Hgb 8.9 L (11.5-15.4) g/dL Hct 28.2 L (35.3-44.9) % Plt Count 194 (140-400) K/mcL Neutrophils # 4.2 (1.6-8.9) K/mcL BMP 10/02/16 02:46 Sodium 135 L Potassium 3.9 Chloride 101 Carbon Dioxide 25 BUN 16 Creatinine 1.13 H Glucose 185 H Calcium 9.3 Urine 10/02/16 Range/Units 09:00 Urine Color Yellow (Yellow) Urine Clarity Turbid A (Clear) Urine pH 6.0 (5.0-8.0) pH Units Ur Specific [place] 1.022 (1.010-1.025) Urine Protein 30 H (Neg-Trace) mg/dL Urine Glucose (UA) 250 H (Normal) mg/dL - ABG Interpretation ABG results: PT/INR, D-dimer PT 12.1 Seconds (9.4-12.1) 09/29/16 17:37 - Impressions Impressions Retroperitoneum Ultrasound 09/30/16 18:37 IMPRESSION: 1. No hydronephrosis. 2. Hepatic steatosis. 3. Mild bladder wall thickening, which is nonspecific. D/ / 09/30/2016 10:11:08 Nidia Perkins MD / brenda Interpreting Provider: Nidia Perkins MD Consult Discharge Plan - Plan Referrals: Che Yusuf, BLOCK BOLTER MULE OPERATOR [Primary Care Provider] -
[2016-10-02] MEDS: *HR* Labetalol 100 MG/20 ML MDV IVP PRN ×3 (20:19→20:40)
--- NOTE | 2016-10-02 20:52 | Anesthesia Evaluation Post Op ---
Date of Encounter: 10/02/16 Time of Encounter: 20:51 - Vital Signs Vital Signs: Vital Signs/O2 Sat/Glucose, Most Current Temp Pulse Resp BP Pulse Ox 10/02/16 20:47 91 16 168/83 97 10/02/16 20:37 98.6 F 94 16 171/84 98 10/02/16 20:27 101 16 179/89 92 10/02/16 20:17 116 16 156/114 96 10/02/16 20:07 99.9 F H 117 16 180/86 95 - Lungs Lungs: Clear Ascult./Percussion - Airway Airway: Non-obstructed - Cardiovascular Regular Rate - Mental Status Mental Status: Asleep with brisk response to light stimulation - Pain Pain Scale: 2 - Nausea Vomiting Nausea Vomiting: Not Present - Hydration Hydration: Ice chips - Discharge PostOp Status: Transfer Patient to floor
[2016-10-02 21:13] LABS: Hematocrit 28.8 % (35.3-44.9); Hemoglobin 9.2 g/dL (11.5-15.4)
[2016-10-02] MEDS ORDERED: *HR* Morphine 2 MG/ML SYRINGE IVP PRN (21:37)
[2016-10-02] MEDS ORDERED: Naloxone 0.4 MG/ML INJ IVP PRN (21:37)
[2016-10-02] MEDS ORDERED: Ringers Solution, Lactated 1,000 ML IVC SCH (21:37)
[2016-10-02] MEDS ORDERED: Sennosides 8.6 MG TABLET PO PRN (21:37)
[2016-10-02] MEDS ORDERED: *HR* OxyCODONE/APAP 5/325 TABLET PO PRN (21:37)
[2016-10-02] MEDS ORDERED: *HR* Dextrose 50 % in Water (Syg) 50 ML SYRINGE IVP PRN (21:37)
[2016-10-02] MEDS ORDERED: Temazepam 15 MG CAPSULE PO PRN (21:37)
[2016-10-02] MEDS ORDERED: Ondansetron 4 MG/2 ML VIAL IVP PRN (21:37)
[2016-10-02] MEDS ORDERED: Acetaminophen 325 MG TABLET PO PRN (21:37)
[2016-10-02] MEDS ORDERED: D5% in Water 1,000 ML IVC PRN (21:37)
[2016-10-02] MEDS ORDERED: Dextrose Gel 15 GM PO PRN ×2 (21:37)
[2016-10-02] MEDS ORDERED: MOM Conc 10 ML UD.LIQ PO PRN (21:37)
[2016-10-02] MEDS: ceFAZolin 2,000 MG in D5% in Water 100 ML IVPB SCH (23:49)
[2016-10-03 05:25] LABS: Hematocrit 26.7 % (35.3-44.9); Hemoglobin 8.5 g/dL (11.5-15.4)
[2016-10-03] MEDS: Insulin LISPRO 300 UNITS/3 ML VIAL SQ SCH ×4 (05:59→18:12)
[2016-10-03] MEDS: *HR* Heparin 5,000 UNIT/ML VIAL SQ SCH ×3 (06:00→21:52)
--- NOTE | 2016-10-03 06:23 | Orthopedics Progress Note ---
Date of Encounter: 10/03/16 Time of Encounter: 06:23 Subjective Principal diagnosis: Right Patellar Fracture, Right humerus fracture Interval history: Patient was seen this morning doing well without complaints. Afebrile vital signs stable. Operative extremity: Neurovascularly intact cast intact Calves nontender Assessment and plan: Continue with postoperative care hemoglobin 8.5 Objective Vital signs: Vital Signs Temp Pulse Resp BP Pulse Ox 10/03/16 04:00 97.5 F L 8 15 141/81 96 10/02/16 23:56 98.2 F 98 16 159/86 96 10/02/16 22:46 98.1 F 98 18 160/86 96 10/02/16 22:19 98.2 F 97 16 160/89 98 10/02/16 21:45 97.8 F 96 15 157/86 96 10/02/16 21:07 98.6 F 93 16 171/80 98 10/02/16 20:57 98.6 F 91 16 168/84 97 10/02/16 20:47 91 16 168/83 97 10/02/16 20:37 98.6 F 94 16 171/84 98 10/02/16 20:27 101 16 179/89 92 10/02/16 20:17 116 16 156/114 96 10/02/16 20:07 99.9 F H 117 16 180/86 95 10/02/16 14:28 98.9 F 104 18 147/79 98 10/02/16 11:15 98.3 F 106 16 155/82 96 10/02/16 06:28 98.9 F 104 18 163/85 95 Intake and Output 10/02/16 10/02/16 10/03/16 15:59 23:59 07:59 Intake Total 100 / 100 100 / 100 Output Total 400 / 400 120 / 120 550 / 550 Balance -300 / -300 -120 / -120 -450 / -450 Intake: IV Fluids 100 / 100 Ancef 2,000 MG In 100 / 100 Dextrose 5% 100 ML @ 200 mls/hr IVPB Q8HR [facility] Rx#: [id number] Oral 100 / 100 Output: Urine 400 / 400 Estimated Blood Loss 100 / 100 Urine Amount (Catheter) 20 / 20 Catheter 550 / 550 Other: Meal Lunch Percent of Meal Consumed 10% Blood Glucose* 175 242 243 - Labs CBC & BMP: 10/03/16 04:37 10/02/16 02:46 Labs: Abnormal lab results RBC 3.36 M/mcL (3.82-4.97) L 10/02/16 02:46 Hgb 8.5 g/dL (11.5-15.4) L 10/03/16 04:37 Hct 26.7 % (35.3-44.9) L 10/03/16 04:37 MCH 26.5 pg (28.0-33.3) L 10/02/16 02:46 Sodium 135 mEq/L (136-145) L 10/02/16 02:46 Creatinine 1.13 mg/dL (0.57-1.11) H 10/02/16 02:46 Est GFR ( Amer) 59 (> 60) L 10/02/16 02:46 Est GFR (Non-Af Amer) 49 (> 60) L 10/02/16 02:46 Glucose 185 mg/dL (70-99) H 10/02/16 02:46 POC Glucose 242 (58-89) H 10/02/16 22:18 Hemoglobin A1c 8.1 % (-5.6) H 09/29/16 17:37 Uric Acid 6.2 mg/dL (2.6-6.0) H 09/29/16 17:37 Iron 29 mcg/dL (50-170) L 10/02/16 02:46 % Saturation 8 % (15-50) L 10/02/16 02:46 Globulin 4.2 g/dL (2.4-3.5) H 09/29/16 17:37 Albumin/Globulin Ratio 0.9 (1.1-2.2) L 09/29/16 17:37 Vitamin B12 < 109 pg/mL (213-816) L 10/02/16 02:46 Urine Clarity Turbid (Clear) A 10/02/16 09:00 Urine Protein 30 mg/dL (Neg-Trace) H 10/02/16 09:00 Urine Glucose (UA) 250 mg/dL (Normal) H 10/02/16 09:00 Urine Ketones Trace mg/dL (Negative) H 10/02/16 09:00 Urine Blood Small (Negative) H 10/02/16 09:00 Urine Nitrite Positive (Negative) A 10/02/16 09:00 Ur Leukocyte Esterase Moderate (Negative) H 10/02/16 09:00 - VTE Documentation of Mechanical Device: Venous foot pump, device Consult Discharge Plan - Plan Referrals: Che Yusuf CNP [Primary Care Provider] -
[2016-10-03] MEDS ORDERED: Pantoprazole 40 MG VIAL IVP SCH (06:30)
[2016-10-03] MEDS ORDERED: Dextrose Gel 15 GM PO PRN ×2 (06:32)
[2016-10-03] MEDS ORDERED: *HR* Dextrose 50 % in Water (Syg) 50 ML SYRINGE IVP PRN (06:32)
[2016-10-03] MEDS ORDERED: D5% in Water 1,000 ML IVC PRN (06:32)
--- NOTE | 2016-10-03 07:34 | Internal Med Progress Note ---
Date of Encounter: 10/03/16 Time of Encounter: 07:31 - Assessment and plan (1) Right patella fracture Current Visit: Yes Status: Acute Assessment and plan: 10/03/2016: Status post right patellar ORIF POD 1. Start physical therapy and occupational therapy. Social work for discharge planning to subacute rehabilitation. Quigley catheter was discontinued today. Pain control with IV morphine for severe pain, and Percocet for moderate pain. Continue with acetaminophen for mild pain. Follow up with orthopedic service. Patient is nonweightbearing. She is at high risk for morbidity and mortality and complications due to treatment for pain with IV opiates and need for major orthopedic surgery today. Qualifiers: Encounter type: subsequent encounter Fracture type: closed Fracture morphology: comminuted Fracture alignment: displaced Fracture healing: with routine healing Qualified Code(s): S82.041D - Displaced comminuted fracture of right patella, subsequent encounter for closed fracture with routine healing (2) Humeral head fracture Current Visit: Yes Status: Acute Assessment and plan: Right upper extremity immobilized in a brace. No surgical repair needed per orthopedic service. Continue with pain control. Pain control. Neurovascular exam intact. Qualifiers: Encounter type: subsequent encounter Laterality: right Fracture healing: with routine healing Qualified Code(s): S42.291D - Other displaced fracture of upper end of right humerus, subsequent encounter for fracture with routine healing (3) Fall Current Visit: Yes Status: Acute Assessment and plan: Currently bedrest. Fall precautions. PT OT evaluation postop. Qualifiers: Qualified Code(s): W19.XXXA - Unspecified fall, initial encounter (4) Hypertension Current Visit: Yes Status: Acute Assessment and plan: Restart Hyzaar per her home doses. Monitor blood pressure closely. Pain control. Qualifiers: Hypertension type: essential hypertension Qualified Code(s): I10 - Essential (primary) hypertension (5) Hyperlipidemia Current Visit: Yes Status: Acute Assessment and plan: I will restart her pravastatin. Qualifiers: Hyperlipidemia type: unspecified Qualified Code(s): E78.5 - Hyperlipidemia , unspecified (6) Diabetes Current Visit: Yes Status: Acute Assessment and plan: Insulin sliding scale with meals. She is on glyburide at home. I will stop this and start insulin sliding scale. Diabetic diet. Qualifiers: Diabetes mellitus type: type 2 Diabetes mellitus complication status: without complication Diabetes mellitus alf insulin use: without alf use Qualified Code(s): E11.9 - Type 2 diabetes mellitus without complications (7) DVT prophylaxis Current Visit: Yes Status: Acute Assessment and plan: Subcutaneous heparin every 8 hours. (8) Chronic anemia Current Visit: Yes Status: Acute Assessment and plan: This is worsening likely due to IV fluids. Anemia studies reveal iron deficiency. Start oral iron prior to discharge. Transfuse if hemoglobin below 7. (9) Iron deficiency anemia Current Visit: Yes Status: Acute Assessment and plan: Start oral iron pre-discharge. Qualifiers: Iron deficiency anemia type: other iron deficiency Qualified Code(s): D50.8 - Other iron deficiency anemias (10) Constipation by delayed colonic transit Current Visit: Yes Status: Acute Assessment and plan: Senna and Colace daily. Oral hydration. MiraLAX as needed. (11) Abnormal urinalysis Current Visit: Yes Status: Acute Assessment and plan: She has not been able to urinate. Yesterday's urinalysis was positive for nitrate and leukocyte esterase. I suspect date urinary tract infection. Repeat UA, send culture, straight catheter for urinalysis collection. Hold antibiotics until collection. - Subjective Interval history: 10/03/2016: Patient reports mild burning right knee discomfort, no pain. She has POD 1 after right patellar ORIF. Denies fevers chills cough and shortness of breath. Denies nausea. She has not had a bowel movement for 2 days. 10/02/2016: Patient reports mild right knee pain, better with rest and oral pain medication. She fell while at work and injured her right knee and right arm. She was diagnosed with a right patellar fracture and right humeral fracture and was transferred to our facility for further treatment. - Constitutional Vitals: Temp Pulse Resp BP Pulse Ox 98.1 F 100 18 144/76 97 10/03/16 06:32 10/03/16 06:32 10/03/16 06:32 10/03/16 06:32 10/03/16 06:32 General appearance: Present: cooperative, A&O X 3, pleasant, no acute distress - Eye Eye exam: Present: PERRL, conjuntiva pink, sclera anicteric Pupils: Present: PERRL - Respiratory Respiratory exam: Present: CTAB. Absent: accessory muscle use, rales, rhonchi, wheezes - Cardiovascular Cardiovascular exam: Present: RRR, +S1, +S2. Absent: diastolic murmur, gallop, rubs, systolic murmur - GI/Abdominal GI/Abdominal exam: Present: normal bowel sounds, soft, no peritoneal signs. Absent: distended, tenderness - Extremities Exam Extremities exam: Present: warm, radial pulses palpable and symetrical. Absent : calf tenderness, cyanotic, pedal edema Additional comments: right lower extremity is in a cast. Right arm immobilized in a brace. - Skin Skin exam: Present: dry, intact Internal Medicine: Result - Labs CBC & Chem 7: 10/03/16 04:37 10/02/16 02:46 Labs: Short CBC 10/02/16 10/03/16 Range/Units 21:06 04:37 Hgb 9.2 L 8.5 L (11.5-15.4) g/dL Hct 28.8 L 26.7 L (35.3-44.9) % Urine 10/02/16 Range/Units 09:00 Urine Color Yellow (Yellow) Urine Clarity Turbid A (Clear) Urine pH 6.0 (5.0-8.0) pH Units Ur Specific [place] 1.022 (1.010-1.025) Urine Protein 30 H (Neg-Trace) mg/dL Urine Glucose (UA) 250 H (Normal) mg/dL - ABG Interpretation ABG results: PT/INR, D-dimer PT 12.1 Seconds (9.4-12.1) 09/29/16 17:37 - Impressions Impressions Retroperitoneum Ultrasound 09/30/16 18:37 IMPRESSION: 1. No hydronephrosis. 2. Hepatic steatosis. 3. Mild bladder wall thickening, which is nonspecific. D/ / 09/30/2016 10:11:08 Nidia Perkins MD / brenda Interpreting Provider: Nidia Perkins MD Knee X-Ray 10/02/16 19:16 IMPRESSION: Anatomic alignment of the patella after fracture repair D/ / Abdulaziz Wei MD / Abdulaziz Wei MD Interpreting Provider: Abdulaziz Wei MD Shoulder X-Ray 10/02/16 19:43 IMPRESSION: Acute right humeral fracture. No significant change. D/ / Abdulaziz Wei MD / Abdulaziz Wei MD Interpreting Provider: Abdulaziz Wei MD - VTE Documentation of Mechanical Device: Venous foot pump, device Consult Discharge Plan - Plan Referrals: Che Yusuf L[employer]ER [employer]ETING [Primary Care Provider] -
[2016-10-03 07:42] LABS: Calcium 9.3 mg/dL (8.6-10.8); Potassium 4.4 mEq/L (3.5-4.5)
[2016-10-03] MEDS: Sennosides/Docusate Sodium TABLET PO SCH (07:45)
[2016-10-03] MEDS: ceFAZolin 2,000 MG in D5% in Water 100 ML IVPB SCH (07:47)
[2016-10-03 10:21] LABS: Bilirubin,Urine Negative (Negative); Blood,Urine Negative (Negative); Clarity,Urine Clear (Clear); Color,Urine Yellow (Yellow); Glucose,Urine (UA) 500 mg/dL (Normal); Ketones,Urine Negative (Negative); Leukocyte Esterase,Urine Moderate (Negative); Nitrite,Urine Negative (Negative); Protein,Urine Trace mg/dL (Neg-Trace); Specific Gravity,Urine 1.024 (1.010-1.025); Urobilinogen,Urine Normal (Normal)
[2016-10-03 10:24] LABS: Hyaline Casts,Urine None Seen per lpf (None-Few); RBC,Urine 0-3 per hpf (0-3); Squamous Epithelial Cell,Urine Many per lpf (None-Few)
[2016-10-03 10:37] LABS: Bacteria,Urine Few per hpf (None-Few)
[2016-10-03] MEDS: *HR* OxyCODONE/APAP 5/325 TABLET PO PRN ×3 (13:37→22:06)
[2016-10-03] MEDS ORDERED: Insulin LISPRO 300 UNITS/3 ML VIAL SQ SCH (21:00)
[2016-10-04] MEDS: *HR* OxyCODONE/APAP 5/325 TABLET PO PRN ×4 (02:14→15:14)
[2016-10-04 03:46] LABS: Basophils % 0.3 %; Eosinophils # 0.1 K/mcL (0.0-0.6); Eosinophils % 1.8 %; Hematocrit 26.9 % (35.3-44.9); Hemoglobin 8.5 g/dL (11.5-15.4); Immature Granulocytes % 0.6 % (0-4); Lymphocytes # 2.2 K/mcL (0.6-4.6); Lymphocytes % 31.9 %; Mean Corpuscular HGB Conc 31.6 g/dL (31.6-35.5); Mean Corpuscular Hemoglobin 26.6 pg (28.0-33.3); Mean Corpuscular Volume 84.3 fL (83.0-100.0); Monocytes # 0.5 K/mcL (0.0-1.3); Monocytes % 7.4 %; Neutrophils # 4.1 K/mcL (1.6-8.9); Platelet Count 211 K/mcL (140-400); Red Blood Count 3.19 M/mcL (3.82-4.97); Red Cell Distribution Width 14.4 % (11.5-14.5)
[2016-10-04 03:54] LABS: Calcium 9.3 mg/dL (8.6-10.8); Magnesium 1.3 mg/dL (1.6-2.6); Potassium 3.9 mEq/L (3.5-4.5)
[2016-10-04] MEDS: *HR* Heparin 5,000 UNIT/ML VIAL SQ SCH (05:07)
--- NOTE | 2016-10-04 06:50 | Orthopedics Progress Note ---
Date of Encounter: 10/04/16 Time of Encounter: 06:50 Subjective Principal diagnosis: Right Patellar Fracture, Right humerus fracture Interval history: Patient was seen this morning doing well without complaints. Afebrile vital signs stable. Operative extremity: Neurovascularly intact cast intact will check cast for discharge Calves nontender Assessment and plan: Continue with postoperative care hemoglobin 8.5 Stable for discharge Objective Vital signs: Vital Signs Temp Pulse Resp BP Pulse Ox 10/04/16 01:06 98.1 F 111 16 136/79 93 10/03/16 20:23 98.0 F 116 16 142/80 96 10/03/16 15:00 98.7 F 102 16 141/78 97 10/03/16 11:20 98.4 F 101 16 153/82 95 Intake and Output 10/03/16 10/03/16 10/04/16 15:59 23:59 07:59 Intake Total 120 / 120 Output Total 500 / 500 600 / 600 Balance -380 / -380 -600 / -600 Intake: Oral 120 / 120 Output: Urine 500 / 500 600 / 600 Other: Meal Dinner Percent of Meal Consumed 100% # Voids 1 1 Blood Glucose* 189 233 - Labs CBC & BMP: 10/04/16 03:32 10/04/16 03:32 Labs: Abnormal lab results RBC 3.19 M/mcL (3.82-4.97) L 10/04/16 03:32 Hgb 8.5 g/dL (11.5-15.4) L 10/04/16 03:32 Hct 26.9 % (35.3-44.9) L 10/04/16 03:32 MCH 26.6 pg (28.0-33.3) L 10/04/16 03:32 Sodium 135 mEq/L (136-145) L 10/04/16 03:32 BUN 24 mg/dL (7-20) H 10/04/16 03:32 Creatinine 1.14 mg/dL (0.57-1.11) H 10/04/16 03:32 Est GFR ( Amer) 58 (> 60) L 10/04/16 03:32 Est GFR (Non-Af Amer) 48 (> 60) L 10/04/16 03:32 Glucose 227 mg/dL (70-99) H 10/04/16 03:32 POC Glucose 207 (58-89) H 10/03/16 16:45 Hemoglobin A1c 8.1 % (-5.6) H 09/29/16 17:37 Uric Acid 6.2 mg/dL (2.6-6.0) H 09/29/16 17:37 Magnesium 1.3 mg/dL (1.6-2.6) L 10/04/16 03:32 Iron 29 mcg/dL (50-170) L 10/02/16 02:46 % Saturation 8 % (15-50) L 10/02/16 02:46 Globulin 4.2 g/dL (2.4-3.5) H 09/29/16 17:37 Albumin/Globulin Ratio 0.9 (1.1-2.2) L 09/29/16 17:37 Vitamin B12 < 109 pg/mL (213-816) L 10/02/16 02:46 Urine Glucose (UA) 500 mg/dL (Normal) H 10/03/16 10:10 Ur Leukocyte Esterase Moderate (Negative) H 10/03/16 10:10 Urine Microscopic WBC 5-15 per hpf (0-3) H 10/03/16 10:10 Ur Squamous Epith Cells Many per lpf (None-Few) H 10/03/16 10:10 Ur Culture Indicated? YES (NO) A 10/03/16 10:10 - VTE Documentation of Mechanical Device: Venous foot pump, device Consult Discharge Plan - Plan Referrals: Che Yusuf, DIELECTRIC PRESS OPERATOR [Primary Care Provider] - Samia Meyers, PAC [Physician Health Equipment Servicer] - 10/11/16 11:15 am
[2016-10-04] MEDS: Sennosides/Docusate Sodium TABLET PO SCH (08:49)
[2016-10-04] MEDS: Insulin LISPRO 300 UNITS/3 ML VIAL SQ SCH ×2 (08:52→12:40)
[2016-10-04] MEDS ORDERED: valACYclovir 500 MG TABLET PO PRN (09:42)
[2016-10-04] MEDS ORDERED: Magnesium Sulfate 2 GM in D5% in Water 100 ML IVPB ONE (09:44)
[2016-10-04 10:08] VITALS: BP 159/84
--- NOTE | 2016-10-04 13:46 | Discharge Summary ---
Date of Encounter: 10/04/16 Time of Encounter: 13:42 - Discharge Diagnosis (1) Right patella fracture Priority: Primary Status: Acute Qualifiers: Encounter type: subsequent encounter Fracture type: closed Fracture morphology: comminuted Fracture alignment: displaced Fracture healing: with routine healing Qualified Code(s): S82.041D - Displaced comminuted fracture of right patella, subsequent encounter for closed fracture with routine healing (2) Humeral head fracture Priority: Secondary Status: Acute Qualifiers: Encounter type: subsequent encounter Laterality: right Fracture healing: with routine healing Qualified Code(s): S42.291D - Other displaced fracture of upper end of right humerus, subsequent encounter for fracture with routine healing (3) Fall Priority: Secondary Status: Acute Qualifiers: Encounter type: subsequent encounter Qualified Code(s): W19.XXXD - Unspecified fall, subsequent encounter (4) Hypertension Priority: Secondary Status: Acute Qualifiers: Hypertension type: essential hypertension Qualified Code(s): I10 - Essential (primary) hypertension (5) Hyperlipidemia Priority: Secondary Status: Acute Qualifiers: Hyperlipidemia type: unspecified Qualified Code(s): E78.5 - Hyperlipidemia , unspecified (6) Diabetes Priority: Secondary Status: Acute Qualifiers: Diabetes mellitus type: type 2 Diabetes mellitus complication status: without complication Diabetes mellitus halfway insulin use: without halfway use Qualified Code(s): E11.9 - Type 2 diabetes mellitus without complications (7) Chronic anemia Priority: Secondary Status: Acute (8) Iron deficiency anemia Priority: Secondary Status: Acute Qualifiers: Iron deficiency anemia type: other iron deficiency Qualified Code(s): D50.8 - Other iron deficiency anemias (9) Constipation by delayed colonic transit Priority: Secondary Status: Acute (10) Abnormal urinalysis Priority: Secondary Status: Acute - Discharge Medications Prescriptions: OxyCODONE/APAP 5/325 [Percocet 5/325 MG] 1 each PO Q4HR PRN #20 tablet PRN Reason: Pain (4-7) Enoxaparin [Lovenox] 30 mg SQ DAILY #7 syr Ferrous Sulfate 325 mg PO BIDWM #60 tablet Losartan [Cozaar] 50 mg PO DAILY #30 tablet Sennosides/Docusate Sodium [Senna-Docusate Sodium Tablet] 1 each PO BID #20 tablet Home Medications: Aspirin 81 mg PO DAILY 09/29/16 [History] Diltiazem HCl [Diltiazem ER] 120 mg PO DAILY 09/29/16 [History] Gabapentin [Neurontin] 400 mg PO TID 09/29/16 [History] GlyBURIDE 5 mg PO BIDWM 09/29/16 [History] Multivitamin [Multi-Day Vitamins] 1 tab PO DAILY 09/29/16 [History] Pravastatin Sodium [Pravachol] 40 mg PO DAILY 09/29/16 [History] Tolterodine LA (24 HR) [Detrol LA] 4 mg PO DAILY 09/29/16 [History] Valacyclovir HCl [Valtrex] 1,000 mg PO Q12H PRN 09/29/16 [History] Metformin HCl [Fortamet] 1,000 mg PO BID 10/03/16 [History] Enoxaparin [Lovenox] 30 mg SQ DAILY #7 syr 10/04/16 [Rx] Ferrous Sulfate 325 mg PO BIDWM #60 tablet 10/04/16 [Rx] Losartan [Cozaar] 50 mg PO DAILY #30 tablet 10/04/16 [Rx] OxyCODONE/APAP 5/325 [Percocet 5/325 MG] 1 each PO Q4HR PRN #20 tablet 10/04/16 [Rx] Sennosides/Docusate Sodium [Senna-Docusate Sodium Tablet] 1 each PO BID #20 tablet 10/04/16 [Rx] Allergies/Adverse Reactions: Allergies iodine Allergy (Verified 09/29/16 12:51) Hives Procedures/tests Complete & Pending: Procedures Performed prior 72 hours Category Date Time Status ECG 12 lead ECG [ECG] Stat Y 10/02/16 17:54 Completed Date of admission: 09/30/16 15:49 Primary care physician: Che Yusuf, Consults: 10/02/16 21:37 Consult to Occupational Therapy [CONS] Routine Comment: Evaluate, develop and implement POC Consult to Orthopedic Navigator [CONS] [CONS] Routine Consult to Physical Therapy [CONS] Routine Comment: Evaluate, develop and impliment POC Consult to Shellac Polisher [CONS] Routine Reason for SW Consult: post op joint replacement RT Post Op Consult [CONS] Routine Discharging clinician: Andreia Tovar Anticipated date of discharge: 10/04/16 - Patient Status Disposition: Transfer SNF Condition: Good Functional capacity at discharge: uses cane/walker Overall status at discharge: patient is progressing back to baseline - Discharge Instructions Follow Up With: Che Yusuf, JULIANNE [Primary Care Provider] - Samia Meyers PAC [Physician [employer]] - 10/11/16 11:15 am - Diet and Activity Activity: as per physical therapy Diet: diabetic diet, low fat, low cholesterol, low salt diet Hospital course: Ms. Dacosta is a 61 year old female history of diabetes, hypertension and hyperlipidemia who was admitted here after a fall resulting in right-sided patella and right humeral head fracture. Patient was evaluated by orthopedics and underwent open reduction and internal fixation of the right patella. Her right humeral head fracture does not require surgical repair and is currently immobilized in a brace. Patient is doing well since surgery. Her pain is mostly controlled with oral pain medications. Orthopedics has cleared patient for discharge. Patient will be discharged to skilled rehabilitation once she has a bed available. - Time Spent with Patient Total time spent providing and/or coordinating discharge services: Greater than 30 minutes (40 min) - Constitutional Vitals: Temp Pulse Resp BP Pulse Ox 98.6 F 108 16 159/84 97 10/04/16 10:07 10/04/16 10:07 10/04/16 10:07 10/04/16 10:07 10/04/16 10:07 General appearance: Present: cooperative, mild distress, A&O X 3, pleasant, answers questions appropriately - Respiratory Respiratory exam: Present: CTAB. Absent: accessory muscle use, rales, rhonchi, wheezes - Cardiovascular Cardiovascular exam: Present: RRR, +S1, +S2. Absent: diastolic murmur, gallop, rubs, systolic murmur - GI/Abdominal GI/Abdominal exam: Present: normal bowel sounds, soft, no peritoneal signs. Absent: distended, tenderness - Extremities Exam Additional comments: Right upper extremity immobilizing brace. Right lower extremity in cast - Neurological Exam Neurological exam: Present: CN II-XII intact, oriented X3, no focal deficits. Absent: facial droop, speech deficit - Skin Skin exam: Present: dry, intact - VTE Documentation of Mechanical Device: Venous foot pump, device - Attending Attestation This document has been at least partially created by [employer] recognition technology by Dr. Tovar. Errors in grammar, wording or other phrases may exist. If errors are found after the documentation is signed, they will be addressed individually in the addendum section of this document when appropriate.
--- NOTE | 2016-10-04 13:50 | Physician Discharge Referral ---
ExtendedCare Referral Info Institutional Level of Care: Skilled - Diagnosis (1) Right patella fracture Priority: Primary Status: Acute (2) Humeral head fracture Priority: Secondary Status: Acute (3) Fall Priority: Secondary Status: Acute (4) Hypertension Priority: Secondary Status: Acute (5) Hyperlipidemia Priority: Secondary Status: Acute (6) Diabetes Priority: Secondary Status: Acute (7) Chronic anemia Priority: Secondary Status: Acute (8) Iron deficiency anemia Priority: Secondary Status: Acute (9) Constipation by delayed colonic transit Priority: Secondary Status: Acute (10) Abnormal urinalysis Priority: Secondary Status: Acute Prognosis: Good Aware of Diagnosis: Patient Aware of Prognosis: Patient - Transfer Medications Prescriptions: OxyCODONE/APAP 5/325 [Percocet 5/325 MG] 1 each PO Q4HR PRN #20 tablet PRN Reason: Pain (4-7) Enoxaparin [Lovenox] 30 mg SQ DAILY #7 syr Ferrous Sulfate 325 mg PO BIDWM #60 tablet Losartan [Cozaar] 50 mg PO DAILY #30 tablet Sennosides/Docusate Sodium [Senna-Docusate Sodium Tablet] 1 each PO BID #20 tablet Home Medications: Aspirin 81 mg PO DAILY 09/29/16 [History] Diltiazem HCl [Diltiazem ER] 120 mg PO DAILY 09/29/16 [History] Gabapentin [Neurontin] 400 mg PO TID 09/29/16 [History] GlyBURIDE 5 mg PO BIDWM 09/29/16 [History] Multivitamin [Multi-Day Vitamins] 1 tab PO DAILY 09/29/16 [History] Pravastatin Sodium [Pravachol] 40 mg PO DAILY 09/29/16 [History] Tolterodine LA (24 HR) [Detrol LA] 4 mg PO DAILY 09/29/16 [History] Valacyclovir HCl [Valtrex] 1,000 mg PO Q12H PRN 09/29/16 [History] Metformin HCl [Fortamet] 1,000 mg PO BID 10/03/16 [History] Enoxaparin [Lovenox] 30 mg SQ DAILY #7 syr 10/04/16 [Rx] Ferrous Sulfate 325 mg PO BIDWM #60 tablet 10/04/16 [Rx] Losartan [Cozaar] 50 mg PO DAILY #30 tablet 10/04/16 [Rx] OxyCODONE/APAP 5/325 [Percocet 5/325 MG] 1 each PO Q4HR PRN #20 tablet 10/04/16 [Rx] Sennosides/Docusate Sodium [Senna-Docusate Sodium Tablet] 1 each PO BID #20 tablet 10/04/16 [Rx] Allergies/Adverse Reactions: Allergies iodine Allergy (Verified 09/29/16 12:51) Hives - Respiratory Orders Smoking Cessation: Smoking cessation has been advised. For more information, call the [place] Tobacco Quit Line at 1-370-TEIU-NOW. - Advance Directives Code Status: Full Code - Mobility Orders Ambulate (per PT) - Rehabiliation Orders Rehab Orders: Evaluation for Physical Therapy, Evaluation for Occupational Therapy - Diet Orders Cardiac (and Diabetic) CERTIFICATION: I certify that the transfer of the above named patient to an Extended Care Facility is necessary for the continuing treatment of the diagnosis listed. The above information is true and accurate reflection of patient's current condition. Confidential - Redisclosure prohibited without a patient's written consent.
[2016-10-04] MEDS ORDERED: Gabapentin 400 MG CAPSULE PO SCH (15:00)
[2016-10-05] MEDS ORDERED: Tolterodine LA (24 HR) 4 MG CAP.ER.24H PO SCH (09:00)
[2016-10-05] MEDS ORDERED: Aspirin 81 MG TAB.CHEW PO SCH (09:00)
[2016-10-05] MEDS ORDERED: Diltiazem CD (24hr) 120 MG CAPSULE PO SCH (09:00)
== END 2016-10-04 15:57 | DRG 516 ==
LOC: 3NENU 12:40 → EMEROO 12:40 → 3NENU 18:10 → SUATTDRO 09-30 15:49
PROVIDERS: ADMIT Internal Medicine; ATTEND Internal Medicine